=== PATIENT | male | born 1945 | race Caucasian/White ===

== ENCOUNTER 2017-08-07 01:19 | Inpatient (IN) | payer MEDICARE ==
[2017-08-07] MEDS: SOD CHLORIDE 0.9% 500 ML IV (01:26)
[2017-08-07] MEDS ORDERED: VERAPAMIL 5 MG INJ (01:27)
[2017-08-07] MEDS ORDERED: LIDOCAINE 1% (MDV) 20 ML INJ (01:27)
[2017-08-07] MEDS ORDERED: NITROGLYCERIN (IC) 100 MCG/ML INJ (01:27)
[2017-08-07] MEDS ORDERED: MIDAZOLAM 1 MG/ML 2 ML INJ (01:27)
[2017-08-07] MEDS ORDERED: HEPARIN 1000 UNITS/ML 10 ML INJ (01:27)
[2017-08-07] MEDS ORDERED: FENTAnyl 50 MCG/ML VIAL (01:27)
[2017-08-07] MEDS: ONDANSETRON 4 MG INJ IV (01:30)
[2017-08-07] MEDS: morphine 2 MG INJ IV (01:31)
[2017-08-07] MEDS: HEPARIN 1000 UNITS/ML 10 ML INJ IV (01:33)
[2017-08-07] MEDS ORDERED: ACETAMINOPHEN 325 MG TAB PO ×2 (02:00→03:00)
[2017-08-07] MEDS ORDERED: ONDANSETRON 4 MG INJ IV ×2 (02:00→03:00)
[2017-08-07] MEDS ORDERED: MAGNESIUM SULFATE 2 GM/50 ML 50 ML (02:07)
[2017-08-07] MEDS ORDERED: ONDANSETRON 4 MG INJ (02:14)
[2017-08-07] MEDS ORDERED: NORepinephrine 8MG/250 ML (PMX 250 ML IV (02:30)
[2017-08-07 02:33] LABS: ADD MAN DIFF? NO
[2017-08-07 02:35] LABS: WHITE BLOOD COUNT 16.2 10^3/ul (4.8-10.8)
[2017-08-07 02:35] LABS: BASOPHIL # 0.1 10^3/ul (0.0-0.1); BASOPHILS % 0.4 % (0.0-2.0); EOSINOPHILS # 0.1 10^3/ul (0.0-0.5); EOSINOPHILS % 0.4 % (0.0-7.0); HEMATOCRIT 40.7 % (42.0-52.0); HEMOGLOBIN 13.7 g/dl (14.0-18.0); LYMPHOCYTES # 2.1 10^3/ul (0.8-2.9); LYMPHOCYTES % 12.7 % (15.0-51.0); MEAN CORPUSCULAR HEMOGLOBIN 31.6 pg (29.0-33.0); MEAN CORPUSCULAR HGB CONC 33.7 g/dl (32.0-37.0); MEAN CORPUSCULAR VOLUME 93.8 fl (82.0-101.0); MEAN PLATELET VOLUME 9.2 fl (7.4-10.4); MONOCYTE # 0.9 10^3/ul (0.3-0.9); MONOCYTES % 5.3 % (0.0-11.0); NEUTROPHIL # 13.1 10^3/ul (1.6-7.5); NEUTROPHILS % 80.7 % (39.0-77.0); PLATELET COUNT 274 10^3/UL (140-415); RED BLOOD COUNT 4.34 10^6/ul (4.70-6.10); RED CELL DISTRIBUTION WIDTH 13.2 % (11.5-14.5)
[2017-08-07] MEDS ORDERED: EPTIFIBATIDE 100 ML IV (02:43)
[2017-08-07] MEDS ORDERED: SOD CHLORIDE 0.9% 1,000 ML IV (02:43)
[2017-08-07 02:49] LABS: INR 1.23; PROTIME 15.7 Sec (11.9-14.9); PT RATIO 1.2
[2017-08-07 02:52] LABS: ALANINE AMINOTRANSFERASE 56 IU/L (13-69); ALBUMIN 3.1 g/dl (3.3-4.9); ALBUMIN/GLOBULIN RATIO 1.14; ALKALINE PHOSPHATASE 72 IU/L (42-121); ANION GAP 22 (8-16); ASPARTATE AMINO TRANSFERASE 72 IU/L (15-46); BILIRUBIN,INDIRECT 0.1 mg/dl (0-1.1); BILIRUBIN,TOTAL 0.1 mg/dl (0.2-1.3); BLOOD UREA NITROGEN 18 mg/dl (7-20); CALCIUM 7.8 mg/dl (8.4-10.2); CARBON DIOXIDE 13 mmol/L (21-31); CHLORIDE 112 mmol/L (97-110); CREATININE 1.04 mg/dl (0.61-1.24); GLUCOSE 223 mg/dl (70-220); POTASSIUM 3.5 mmol/L (3.5-5.1); SODIUM 143 mmol/L (135-144); TOTAL PROTEIN 5.8 g/dl (6.1-8.1)
[2017-08-07] MEDS ORDERED: TICAGRELOR 90 MG TABLET (02:59)
[2017-08-07] MEDS ORDERED: morphine 2 MG INJ IV (03:00)
[2017-08-07] MEDS ORDERED: AL HYDROX/MG HYDROX/SIMETH 30 ML CUP PO (03:00)
[2017-08-07] MEDS ORDERED: OXYCODONE/ACETAMINOPHEN (5/325) TAB PO ×2 (03:00)
[2017-08-07] MEDS ORDERED: CLINDAMYCIN 300 MG INJ IV (03:00)
[2017-08-07 03:04] LABS: B-TYPE NATRIURETIC PEPTIDE 193 PG/ML (0-125)
[2017-08-07 03:08] LABS: TROPONIN-I 0.637 ng/ml (0.00-0.12)
[2017-08-07] MEDS: SOD CHLORIDE 0.9% 1,000 ML IV ×2 (03:30→03:42)
[2017-08-07 03:49] LABS: PARTIAL THROMBOPLASTIN TIME > 180.0 Sec (25.0-35.0)
[2017-08-07] MEDS: ATORVASTATIN 80 MG TAB PO ×2 (03:53→20:17)
[2017-08-07] MEDS ORDERED: CLINDAMYCIN 600 MG/D5W (PMX) 50 ML IVPB (04:00)
[2017-08-07] MEDS ORDERED: GLUCOSE GEL 15 GRAM TUBE BUCCAL (04:30)
[2017-08-07] MEDS ORDERED: DEXTROSE 50% 50 ML SYRINGE IV ×2 (04:30)
[2017-08-07] MEDS ORDERED: POTASSIUM CHLORIDE 50 ML IVPB (04:30)
[2017-08-07] MEDS ORDERED: GLUCAGON 1 MG INJ IM (04:30)
[2017-08-07] MEDS ORDERED: GLUCOSE GEL 15 GRAM TUBE PO ×2 (04:30)
[2017-08-07] MEDS: POTASSIUM CHLORIDE 20 MEQ /SW 100 ML IVPB (05:37)
[2017-08-07 05:46] LABS: ADD MAN DIFF? NO
[2017-08-07 05:53] LABS: BASOPHILS % 0.1 % (0.0-2.0); EOSINOPHILS % 0.1 % (0.0-7.0); HEMATOCRIT 41.1 % (42.0-52.0); HEMOGLOBIN 13.5 g/dl (14.0-18.0); LYMPHOCYTES # 0.9 10^3/ul (0.8-2.9); LYMPHOCYTES % 6.7 % (15.0-51.0); MEAN CORPUSCULAR HGB CONC 32.8 g/dl (32.0-37.0); MEAN CORPUSCULAR VOLUME 94.5 fl (82.0-101.0); MEAN PLATELET VOLUME 9.2 fl (7.4-10.4); MONOCYTE # 0.8 10^3/ul (0.3-0.9); MONOCYTES % 5.8 % (0.0-11.0); NEUTROPHIL # 12.1 10^3/ul (1.6-7.5); NEUTROPHILS % 86.8 % (39.0-77.0); PLATELET COUNT 267 10^3/UL (140-415); RED BLOOD COUNT 4.35 10^6/ul (4.70-6.10); RED CELL DISTRIBUTION WIDTH 13.5 % (11.5-14.5)
[2017-08-07 05:53] LABS: WHITE BLOOD COUNT 13.9 10^3/ul (4.8-10.8)
[2017-08-07 06:20] LABS: ANION GAP 14 (8-16); BLOOD UREA NITROGEN 21 mg/dl (7-20); CALCIUM 8.2 mg/dl (8.4-10.2); CARBON DIOXIDE 24 mmol/L (21-31); CHLORIDE 111 mmol/L (97-110); CHOL/HDL RATIO 3.4 RATIO; CHOLESTEROL 139 mg/dl (100-200); CREATININE 1.03 mg/dl (0.61-1.24); GLUCOSE 133 mg/dl (70-220); HDL CHOLESTEROL 40 mg/dl (31-75); LDL CHOLESTEROL,CALCULATED 89 mg/dl; SODIUM 145 mmol/L (135-144); TRIGLYCERIDES 52 mg/dl (0-149)
[2017-08-07] MEDS: INSULIN ASPART [NOVOLOG] 3 ML PEN SC ×4 (07:35→20:19)
[2017-08-07] MEDS: TICAGRELOR 90 MG TABLET PO ×2 (08:40→20:21)
[2017-08-07] MEDS: ASPIRIN (EC) 81 MG TAB PO (08:41)
[2017-08-07] MEDS: NICOTINE (21 MG/24 HR) PATCH TRANSDERM (08:42)
[2017-08-07 09:49] LABS: MAGNESIUM 2.6 mg/dl (1.7-2.5)
[2017-08-07] MEDS: MAGNESIUM SULFATE 2 GM/50 ML 50 ML IVPB (10:30)
[2017-08-07] MEDS: METOPROLOL 25 MG TAB PO ×3 (12:02→23:45)
[2017-08-07 14:48] LABS: ADD MAN DIFF? NO
[2017-08-07 14:51] LABS: WHITE BLOOD COUNT 10.9 10^3/ul (4.8-10.8)
[2017-08-07 14:51] LABS: BASOPHILS % 0.3 % (0.0-2.0); EOSINOPHILS % 0.4 % (0.0-7.0); HEMATOCRIT 36.3 % (42.0-52.0); HEMOGLOBIN 12.1 g/dl (14.0-18.0); LYMPHOCYTES # 1.3 10^3/ul (0.8-2.9); LYMPHOCYTES % 12.1 % (15.0-51.0); MEAN CORPUSCULAR HEMOGLOBIN 31.4 pg (29.0-33.0); MEAN CORPUSCULAR HGB CONC 33.3 g/dl (32.0-37.0); MEAN CORPUSCULAR VOLUME 94.3 fl (82.0-101.0); MEAN PLATELET VOLUME 9.2 fl (7.4-10.4); MONOCYTE # 1.3 10^3/ul (0.3-0.9); MONOCYTES % 11.6 % (0.0-11.0); NEUTROPHIL # 8.2 10^3/ul (1.6-7.5); NEUTROPHILS % 75.3 % (39.0-77.0); PLATELET COUNT 219 10^3/UL (140-415); RED BLOOD COUNT 3.85 10^6/ul (4.70-6.10); RED CELL DISTRIBUTION WIDTH 13.6 % (11.5-14.5)
[2017-08-07] MEDS ORDERED: IPRATROPIUM (NEB) 0.5 MG/2.5 ML AMP HHN (16:00)
[2017-08-07] MEDS: FLUTICASONE 0.05% 16 GM NAS SPRAY NASAL (20:16)
[2017-08-07] MEDS: HEPARIN 5,000 UNIT/0.5 ML VIAL SC (20:22)
[2017-08-08] MEDS: ACCU-CHEK XX (01:40)
[2017-08-08] MEDS: METOPROLOL 25 MG TAB PO ×3 (05:28→21:47)
[2017-08-08 06:00] LABS: ADD MAN DIFF? NO
[2017-08-08 06:13] LABS: WHITE BLOOD COUNT 7.7 10^3/ul (4.8-10.8)
[2017-08-08 06:13] LABS: BASOPHILS % 0.3 % (0.0-2.0); EOSINOPHILS # 0.1 10^3/ul (0.0-0.5); EOSINOPHILS % 1.4 % (0.0-7.0); HEMATOCRIT 32.3 % (42.0-52.0); HEMOGLOBIN 10.7 g/dl (14.0-18.0); LYMPHOCYTES % 25.6 % (15.0-51.0); MEAN CORPUSCULAR HEMOGLOBIN 31.2 pg (29.0-33.0); MEAN CORPUSCULAR HGB CONC 33.1 g/dl (32.0-37.0); MEAN CORPUSCULAR VOLUME 94.2 fl (82.0-101.0); MEAN PLATELET VOLUME 9.7 fl (7.4-10.4); MONOCYTE # 0.7 10^3/ul (0.3-0.9); MONOCYTES % 9.5 % (0.0-11.0); NEUTROPHIL # 4.8 10^3/ul (1.6-7.5); NEUTROPHILS % 62.8 % (39.0-77.0); PLATELET COUNT 178 10^3/UL (140-415); RED BLOOD COUNT 3.43 10^6/ul (4.70-6.10); RED CELL DISTRIBUTION WIDTH 13.7 % (11.5-14.5)
[2017-08-08 06:28] LABS: HEMOGLOBIN A1C 5.6 % (0-5.9)
[2017-08-08 06:30] LABS: ANION GAP 10 (8-16); BLOOD UREA NITROGEN 33 mg/dl (7-20); CARBON DIOXIDE 23 mmol/L (21-31); CHLORIDE 114 mmol/L (97-110); CREATININE 0.95 mg/dl (0.61-1.24); GLUCOSE 82 mg/dl (70-220); POTASSIUM 3.9 mmol/L (3.5-5.1); SODIUM 143 mmol/L (135-144)
[2017-08-08] MEDS: INSULIN ASPART [NOVOLOG] 3 ML PEN SC ×4 (07:35→21:00)
[2017-08-08] MEDS: POTASSIUM CHLORIDE 10 MEQ in SOD CHLORIDE 0.9% 50 ML IVPB (08:14)
[2017-08-08] MEDS: ASPIRIN (EC) 81 MG TAB PO (08:40)
[2017-08-08] MEDS: FLUTICASONE 0.05% 16 GM NAS SPRAY NASAL (08:40)
[2017-08-08] MEDS: NICOTINE (21 MG/24 HR) PATCH TRANSDERM (08:41)
[2017-08-08] MEDS: TICAGRELOR 90 MG TABLET PO ×2 (08:42→21:44)
[2017-08-08] MEDS: HEPARIN 5,000 UNIT/0.5 ML VIAL SC ×2 (08:43→21:45)
[2017-08-08] MEDS: ATORVASTATIN 80 MG TAB PO (21:34)
[2017-08-09] MEDS: ACCU-CHEK XX (02:00)
[2017-08-09] MEDS: ALBUTEROL/IPRATROPIUM (NEB) 3 ML AMP HHN (05:20)
[2017-08-09] MEDS: METOPROLOL 5 MG INJ IV (05:45)
[2017-08-09 06:50] LABS: ANION GAP 10 (8-16); BLOOD UREA NITROGEN 19 mg/dl (7-20); CALCIUM 8.2 mg/dl (8.4-10.2); CARBON DIOXIDE 26 mmol/L (21-31); CHLORIDE 111 mmol/L (97-110); CREATININE 0.84 mg/dl (0.61-1.24); GLUCOSE 81 mg/dl (70-220); MAGNESIUM 1.8 mg/dl (1.7-2.5); POTASSIUM 3.8 mmol/L (3.5-5.1); SODIUM 143 mmol/L (135-144)
[2017-08-09 06:57] LABS: B-TYPE NATRIURETIC PEPTIDE 2290 PG/ML (0-125)
[2017-08-09] MEDS: AMIODARONE 150MG/D5W BOLUS 100 ML IV (07:18)
[2017-08-09] MEDS: INSULIN ASPART [NOVOLOG] 3 ML PEN SC ×4 (07:55→21:00)
[2017-08-09] MEDS: FLUTICASONE 0.05% 16 GM NAS SPRAY NASAL (08:20)
[2017-08-09] MEDS: NICOTINE (21 MG/24 HR) PATCH TRANSDERM (08:22)
[2017-08-09] MEDS: METOPROLOL 25 MG TAB PO ×3 (08:23→21:00)
[2017-08-09] MEDS: ASPIRIN (EC) 81 MG TAB PO (08:23)
[2017-08-09] MEDS: TICAGRELOR 90 MG TABLET PO ×2 (08:26→21:58)
[2017-08-09] MEDS: HEPARIN 5,000 UNIT/0.5 ML VIAL SC ×2 (08:26→21:58)
[2017-08-09] MEDS: AMIODARONE 900 MG in DEXTROSE 5% 482 ML IV (09:02)
[2017-08-09] MEDS: MAGNESIUM SULFATE 2 GM/50 ML 50 ML IVPB (11:41)
[2017-08-09] MEDS: POTASSIUM CHLORIDE (SR) 20 MEQ TAB PO (11:42)
[2017-08-09] MEDS: FUROSEMIDE 20 MG INJ IV (14:27)
[2017-08-09] MEDS ORDERED: EPTIFIBATIDE 20 ML (15:39)
[2017-08-09] MEDS ORDERED: EPTIFIBATIDE 100 ML IV (15:39)
[2017-08-09] MEDS: ATORVASTATIN 80 MG TAB PO (21:56)
[2017-08-10] MEDS: ACCU-CHEK XX (02:00)
[2017-08-10] MEDS: LORAZEPAM 2 MG INJ IV (05:57)
[2017-08-10] MEDS: INSULIN ASPART [NOVOLOG] 3 ML PEN SC ×4 (07:55→21:00)
[2017-08-10] MEDS: NICOTINE (21 MG/24 HR) PATCH TRANSDERM (08:21)
[2017-08-10] MEDS: METOPROLOL 25 MG TAB PO ×3 (08:23→21:57)
[2017-08-10] MEDS: FLUTICASONE 0.05% 16 GM NAS SPRAY NASAL (08:25)
[2017-08-10] MEDS: HEPARIN 5,000 UNIT/0.5 ML VIAL SC (08:29)
[2017-08-10] MEDS: ASPIRIN (EC) 81 MG TAB PO (08:29)
[2017-08-10] MEDS: TICAGRELOR 90 MG TABLET PO (08:29)
[2017-08-10] MEDS: LORAZEPAM 0.5 MG TAB PO (10:12)
[2017-08-10] MEDS: APIXABAN 5 MG TABLET PO ×2 (14:40→23:22)
[2017-08-10] MEDS: CLOPIDOGREL 75 MG TAB PO (20:22)
[2017-08-10] MEDS: ATORVASTATIN 80 MG TAB PO (21:56)
[2017-08-10] MEDS: ZOLPIDEM 5 MG TAB PO (23:22)
[2017-08-11] MEDS: ACCU-CHEK XX (02:00)
[2017-08-11] MEDS: INSULIN ASPART [NOVOLOG] 3 ML PEN SC ×2 (07:55→11:50)
[2017-08-11] MEDS: METOPROLOL 25 MG TAB PO ×2 (08:07→10:21)
[2017-08-11] MEDS: ASPIRIN (EC) 81 MG TAB PO (08:37)
[2017-08-11] MEDS: APIXABAN 5 MG TABLET PO (08:37)
[2017-08-11] MEDS: FLUTICASONE 0.05% 16 GM NAS SPRAY NASAL (08:37)
[2017-08-11] MEDS: CLOPIDOGREL 75 MG TAB PO (08:38)
[2017-08-11] MEDS: NICOTINE (21 MG/24 HR) PATCH TRANSDERM (08:42)
== END 2017-08-11 16:53 | disposition home or self-care (01) | DRG 246 ==
LOC: TEL 01:32 → E/R 01:19 → TEL 08-08 18:41 → ICU 01:49
PROC: 027034Z Dilation of Coronary Artery, One Artery with Drug-eluting Intraluminal Device, Percutaneous Approach (ICD-10-PCS; principal; 2017-08-07 01:00)
PROC: 4A023N7 Measurement of Cardiac Sampling and Pressure, Left Heart, Percutaneous Approach (ICD-10-PCS; 2017-08-07 01:00)
PROC: B211YZZ Fluoroscopy of Multiple Coronary Arteries using Other Contrast (ICD-10-PCS; 2017-08-07 01:00)
PROC: B215YZZ Fluoroscopy of Left Heart using Other Contrast (ICD-10-PCS; 2017-08-07 01:00)
PROC: 5A2204Z Restoration of Cardiac Rhythm, Single (ICD-10-PCS; 2017-08-07 01:00)
DX: I21.19 ST elevation (STEMI) myocardial infarction involving other coronary artery of inferior wall (principal); I49.01 Ventricular fibrillation; I50.33 Acute on chronic diastolic (congestive) heart failure; I11.0 Hypertensive heart disease with heart failure; J44.9 Chronic obstructive pulmonary disease, unspecified; I48.0 Paroxysmal atrial fibrillation; F17.200 Nicotine dependence, unspecified, uncomplicated; R73.9 Hyperglycemia, unspecified
CPT/HCPCS: 71045; 80048; 80053; 80061; 82962; 83036; 83735; 83880; 84443; 84484; 85025; 85610; 85730; 87081; 92941; 93005; 93306; 93458; 94664; 96374; 96375; 99291-25